=== PATIENT | male | born 1955 | race Caucasian/White ===

== ENCOUNTER → 2016-11-15 | Day surgery (SDC) | payer BC ==
[2016-11-09 07:36] VITALS: Ht 177.8 cm; Wt 84.1 kg
[~2016-11-15] VITALS: Ht 177.8 cm; Wt 84.1 kg
[~2016-11-15] MED LIST: ASPCH81X PO; ATOR-22 PO; ATROPINE SULFATE 0.1 MG/ML 5ML SYR IV PRN; BUPIVACAINE/EPINEPHRINE 0.25% 1:200,000 30 ML VIAL ONE; CEFAZOLIN 2000 MG/60 ML D5W IV SCH; DEXAMETHASONE SOD INJ 4 MG/ML VIAL ONE; EpHEDrine SULFATE 50MG/5ML SYR ONE; EpHEDrine SULFATE INJ 50 MG/ML AMP IV PRN; EpHEDrine SULFATE INJ 50 MG/ML AMP ONE; EpINEphrine INJ 1MG/ML AMP 1 MG/ML AMP ONE; FENTANYL CITRATE INJ 50 MCG/1 ML 2 ML VIAL IV PRN; FENTANYL CITRATE INJ 50 MCG/1 ML 2 ML VIAL ONE; GLYCOPYRROLATE INJ 0.2 MG/ML VIAL ONE; KETO10TA PO; LACTATED RINGER'S 1000ML 1,000 ML IV SCH; LIDOCAINE HCL 1% MPF 2 ML VIAL ONE; LIDOCAINE HCL 2% 2 ML VIAL (20MG/ML) ONE; LISI-725 PO; MIDAZOLAM HCL 1 MG/ML 2ML VIAL ONE; NEOSTIGMINE METHYLSULFATE 5 MG/5 ML SYR ONE; ONDANSETRON INJ 2 MG/ML 2 ML VIAL IV PRN; ONDANSETRON INJ 2 MG/ML 2 ML VIAL ONE; OXYC-57 PO; OXYCODONE/ACETAMINOPHEN 5-325 TAB PO PRN; PHENYLEPHRINE HCL INJ 10 MG/ML VIAL ONE; PROPOFOL IV EMULSION 10 MG/ML 20 ML VIAL IV ONE; ROCURONIUM BROMIDE 10 MG/ML 5 ML VIAL ONE; ROPIVACAINE 0.5% 5 MG/ML 30 ML VIAL ONE; SODIUM CHLORIDE 0.9% 1000ML 1,000 ML IV SCH; SUCCINYLCHOLINE CHLORIDE 20 MG/ML 10 ML VIAL IV ONE
--- NOTE | 2016-11-15 10:20 | History & Physical Bridge - [place] ---
H&P Re-Evaluation Bridge Note: I have examined the patient, reviewed the History & Physical and in the interval since the performance of the History & Physical I have noted the following changes of clinical significance: No changes noted
--- NOTE | 2016-11-15 14:17 | Discharge Instructions-SurgCtr ---
Discharge Instructions Visit Reason for Visit: Left Shoulder Full Thickness Rotator Cuff Tear Discharge Discharge Diagnosis / Problem: SAME ABOVE Discharge Goals Goal(s): Decrease discomfort, Improve function Activity Recommendations Activity Limitations: as noted below Lifting Limitations: until after follow-up appointment Exercise/Sports Limitations: until after follow-up appointment Shower/Bathe: tomorrow Driving or Machine Use: NO DRIVING WHILE IN THE SLING OR WHILE ON PAIN MEDICATION. Anesthesia . Post Anesthesia Instructions: If you have had General Anesthesia or IV Sedation: * Do not drive today. * Resume driving when surgeon permits. * Do not make important decisions or sign legal documents today. * Call surgeon for: 1. Temperature elevations greater than 101 degrees F. 2. Uncontrollable pain. 3. Excessive bleeding. 4. Persistent nausea and vomiting. 5. Medication intolerance (nausea, vomiting or rash). * For nausea and vomiting use only clear liquids such as: tea, soda, bouillon until nausea subsides, then gradually increase diet as tolerated. * If you have any concerns or questions, call your surgeon's office. If physician is unavailable and it is an emergency, call 911 or go to the nearest emergency room. . Instructions / Follow-Up Instructions / Follow-Up MEDICATIONS: * Resume previous medications unless instructed otherwise by your surgeon. * Always take pain medication on a full stomach or with food to avoid upset stomach. * Do not drink alcohol or drive while taking narcotics. * Ibuprofen or Tylenol may be taken if narcotic not needed. SPECIAL CARE INSTRUCTIONS: __ None _X_ Keep extremity elevated and iced x 48 hours; apply ice 20-30 minutes 8-10 times/day. May remove at night. __ Sling __24 hrs/day __ Remove at night _X_ Shoulder Immobilizer (MAY REMOVE IN 24-48 HOURS ONLY TO SHOWER AND FOR THERAPY) _X_ 24 hrs/day __ Remove at night _X_ Dressing __ Maintain until seen in office, may shower with plastic over site _X_ Remove dressings in 24-48 hours and then may shower _X_ Cover incisions with band-aids after showering __ Do not remove steri-strips Call physician if chills or temperature rises above 102 degrees or pain unrelieved by prescribed pain medications at . . Diet Recommendations Home Diet: no limitations Fluid Restriction: None Procedures Procedures Performed: Left Shoulder Arthroscopy, Large Rotator Cuff Repair with Application of Allograft, Acromioplasty, Arthroscopic Biceps Tenodesis Pending Studies Studies pending at discharge: no Work Instructions Return To Work: after follow-up Lifting Limitations: NO LIFTING WITH LEFT ARM Medical Emergencies . Who to Call and When: Medical Emergencies: If at any time you feel your situation is an emergency, please call 911 immediately. . Non-Emergent Contact Non-Emergency issues call your: Primary Care Provider Call Non-Emergent contact if: you have a fever, temperature is above 101.5 . . "Provider Documentation" section prepared by Jeffrey To.
--- NOTE | 2016-11-15 14:22 | OPERATIVE REPORT ---
DATE OF OPERATION: 11/15/2016 PREOPERATIVE DIAGNOSIS: Large chronic left rotator cuff tear. POSTOPERATIVE DIAGNOSIS: Same. PROCEDURE: Left shoulder diagnostic arthroscopy with extensive debridement, acromioplasty, large rotator cuff repair with application of allograft, arthroscopic biceps tenodesis. SURGEON: Dr. Cristo Pandey. MARKETING COMMUNICATIONS ASSISTANT: Jose To PA-C, whose assistance was necessary for positioning the arm and helping with instrumentation. ANESTHESIA: General with a left interscalene nerve block. COMPLICATIONS: None. CONDITION: Stable to PACU. INDICATIONS FOR PROCEDURE: Varghese is a very pleasant 61-year-old male who presented to my office with a 3-year history of left shoulder pain, but much worse over the last year. He has noticed weakness in his shoulder. MRI did show a large retracted rotator cuff tear. He elected to undergo arthroscopy. DESCRIPTION OF PROCEDURE: On 11/15/2016, he arrived at [facility] for the above procedure. He was seen in the preoperative holding area and the operative extremity was identified and signed. He was given a preoperative antibiotic and a left interscalene nerve block. He was taken back to the operating room, laid on the table in supine position and put under general anesthesia. He was then put into the beach chair position. The left shoulder was prepped and draped in sterile fashion. Time-out was done and the patient and operative extremity was properly identified. A scope was introduced in the posterior portal. Diagnostic arthroscopy showed a complete tear of the entire supraspinatus and upper border of the infraspinatus. The rotator cuff was completely scarred to the undersurface of the acromion. The subscapularis was intact. The biceps tendon was generally intact. The scope was then put into the subacromial space and time was spent teasing the rotator cuff off the undersurface of the acromion. The rotator cuff was not very good quality. At 61 years old we were thinking about an SCR versus repair with graft and I tried to repair the rotator cuff and placed a 1 mL allograft. Significant time was spent doing extensive debridement of the subacromial space to free up the rotator cuff and all the adhesions. The biceps tendon was then arthroscopically tenotomized. The greater tuberosity was prepared with a ring curette and a microfracture. The rotator cuff was fixed with an Arthrex SpeedBridge configuration. An Arthrex ArthroFlex 1 mm dermal graft was slid over the sutures to beef out the tendon. The tapes were brought down in a SpeedBridge configuration. This gave a nice repair of the rotator cuff and the graft and complete coverage of the humerus. However, the actual rotator cuff tissue was fairly weak. An additional FiberTape was placed in a mattress fashion around the anterior corner of the cuff and brought down to a single 4.75 mm BioComposite SwiveLock suture anchor along with the biceps tendon that was captured with a FiberLink. This completed an arthroscopic biceps tenodesis. Multiple pictures were taken. The shoulder was brought through a full range of motion and felt to be stable. Arthroscopic instruments were then removed from the shoulder. Portal sites were closed with 3-0 nylon. He was then placed in a soft dressing and abduction arm sling. He was then extubated, transferred to a litter and taken to the postanesthesia care unit in stable condition. He tolerated the procedure well. This case did take longer than a regular rotator cuff repair. This was a chronic cuff tear and the tissue was very weak. This also required a graft in the shoulder and this took more than twice as long as a regular rotator cuff repair. I attest to the content of the Intraoperative Record and any orders documented therein. Any exceptio ns are noted below.
--- NOTE | 2016-11-15 14:38 | [facility] Post Operative Brief Note ---
Immediate Operative Summary Operative Date Nov 15, 2016. Pre-Operative Diagnosis Left Shoulder Rotator Cuff Tear Post-Operative Diagnosis Same Procedure(s) Performed Left Shoulder Arthroscopy, Large Rotator Cuff Repair with Application of Allograft, Acromioplasty, Arthroscopic Biceps Tenodesis Surgeon Dr. Pandey Trench Digger Surgeon(s) Mik To PA-C Estimated Blood Loss 5 mL Findings as above Specimens None Complication(s) None Disposition Recovery Room / PACU
--- NOTE | 2016-11-15 15:15 | Anesthesia Progress Nt - [facility] ---
Anesthesia Post Op Note Date & Time Nov 15, 2016 at 15:14 Vital Signs Pain Intensity: 0 Vital Signs Past 12 Hours Date Time Temp Pulse Resp B/P Pulse Ox O2 Delivery O2 Flow Rate FiO2 11/15/16 14:59 71 17 11/15/16 14:59 70 17 96 11/15/16 14:58 158/93 11/15/16 14:57 36.2 74 16 158/93 96 Room Air 11/15/16 14:54 71 95 11/15/16 14:54 71 11/15/16 14:53 70 15 96 11/15/16 14:53 69 15 11/15/16 14:49 149/89 11/15/16 14:48 70 18 11/15/16 14:48 70 18 98 11/15/16 14:47 69 24 11/15/16 14:47 69 24 96 11/15/16 14:43 165/89 11/15/16 14:42 71 20 98 11/15/16 14:42 71 20 11/15/16 14:38 142/86 11/15/16 14:37 65 15 11/15/16 14:37 65 15 100 11/15/16 14:33 138/83 11/15/16 14:32 63 1 100 11/15/16 14:32 65 1 11/15/16 14:31 60 0 11/15/16 14:31 62 0 100 11/15/16 14:28 141/80 11/15/16 14:26 73 23 100 11/15/16 14:26 73 23 11/15/16 14:23 137/78 11/15/16 14:21 58 0 11/15/16 14:21 58 0 100 11/15/16 14:18 136/71 11/15/16 14:16 60 11 100 11/15/16 14:16 60 11 11/15/16 14:13 36.9 64 20 145/86 100 Mask 8 11/15/16 14:13 141/79 11/15/16 14:11 65 145/86 100 11/15/16 14:11 65 11/15/16 11:11 62 11/15/16 11:11 62 13 98 11/15/16 11:10 61 14 99 11/15/16 11:10 61 11/15/16 11:08 114/79 11/15/16 11:05 66 11/15/16 11:05 66 15 99 11/15/16 11:04 63 21 100 11/15/16 11:04 63 11/15/16 11:03 141/86 11/15/16 10:59 62 11/15/16 10:59 62 20 100 11/15/16 10:58 145/95 11/15/16 10:55 173/99 11/15/16 10:54 65 0 11/15/16 10:49 59 0 11/15/16 10:44 0 11/15/16 10:22 37.2 62 20 155/102 99 Room Air Notes Mental Status: alert / awake / arousable, participated in evaluation Pt Amnestic to Procedure: Yes Nausea / Vomiting: adequately controlled Pain: adequately controlled Airway Patency, RR, SpO2: stable & adequate BP & HR: stable & adequate Hydration State: stable & adequate Anesthetic Complications: no major complications apparent
[2016-11-15 15:23] VITALS: TEMP 36.2
[2016-11-15 15:47] VITALS: BP 144/88; PULSE 75; O2SAT 95
== END | disposition home or self-care (01) ==
LOC: X.SURG 10:09
PROVIDERS: ATTEND Orthopaedic Surgery
DX: M75.102 Unspecified rotator cuff tear or rupture of left shoulder, not specified as traumatic (principal); M75.22 Bicipital tendinitis, left shoulder; I10 Essential (primary) hypertension